=== PATIENT | female | born 1945 | race Caucasian/White ===

== ENCOUNTER 2017-05-23 08:03 | Day surgery (SDC) | payer OTHER ==
[~2017-05-23] VITALS: Ht 167.6 cm; Wt 89.1 kg
[2017-05-23] MEDS ORDERED: Lisinopril2.5 MG (08:29)
[2017-05-23] MEDS ORDERED: HUMIRA40 MG/0.8 (08:30)
== END 2017-05-23 11:01 | disposition home or self-care (01) ==
LOC: ORSCSDS 08:03
PROVIDERS: Internal Medicine Gastroenterology
PROC: 0DB98ZX Excision of Duodenum, Via Natural or Artificial Opening Endoscopic, Diagnostic (ICD-10-PCS; principal; 2017-05-23 09:45)
PROC: 0DB68ZX Excision of Stomach, Via Natural or Artificial Opening Endoscopic, Diagnostic (ICD-10-PCS; principal; 2017-05-23 09:45)
DX: R11.2 Nausea with vomiting, unspecified (principal)
CPT/HCPCS: 88305; 88342; J2250; J2405